=== PATIENT | female | born 1985 | race African-American/Black ===

== ENCOUNTER 2016-03-10 23:26 | Emergency (ER) | payer OTHER ==
[~2016-03-10] VITALS: Ht 167.6 cm; Wt 56.2 kg
[~2016-03-10 23:26] MED LIST: BACTRIM,SEPT1 TABLET PO; DOXYCYCLINE HY100 MG PO; FIORICET,ESG1 TABLET PO; KEFLEX500 MG PO; MOBIC7.5 MG PO; MODAFINIL100 MG PO; MOTRIN600 MG PO; Motrin PO; NOHOMEMEDS; PEN-VEE K,VEET500 MG PO; PERCOCET 5/31 TABLET PO; PREFERA-OB P1 TABLET PO; TRAMADOL HCL50 MG PO; VALIUM5 MG PO
[2016-03-11 00:58] LABS: HEMATOCRIT 39.1 % (36.0-46.0); MCH 26.6 PG (29.0-34.0); MCHC 33.5 G/DL (30.0-36.0); MCV 79.5 FL (83-99); MEAN PLAT.VOLUME 8.9 uM^3 (9.5-12.4); PLATELET COUNT 247 K/uL (156-360); RBC DIS.WIDTH-SD 36.7 % (39-53); RED BLOOD COUNT 4.92 M/uL (3.80-5.20); WHITE BLOOD COUNT 5.5 K/uL (4.1-10.2)
[2016-03-11 01:06] LABS: CHLORIDE 105 mEq/L (99-109); POTASSIUM 3.9 mEq/L (3.7-5.4); SODIUM 138 mEq/L (136-147)
[2016-03-11 01:08] LABS: GLUCOSE 89 mg/dL (70-99)
[2016-03-11 01:10] LABS: ANION GAP 10 MEQ/L (2-14)
[2016-03-11 01:12] LABS: GFR ESTIMATE (CALCULATED) > 59 mL/min/
[2016-03-11 01:13] LABS: UREA NITROGEN (BUN) 9 mg/dL (9-23)
[2016-03-11 01:15] LABS: D-DIMER ELISA 0.19 mg/L FEU (< 0.57)
[2016-03-11 01:23] LABS: QUANTITATIVE HCG < 4.0 MIU/ML
[2016-03-11 01:42] LABS: TROP-I INTERPRETATION NEGATIVE; TROPONIN-I < 0.01 ng/mL (0.0-0.30)
[2016-03-11] MEDS ORDERED: SKELAXIN800 MG PO (02:09)
[2016-03-11 03:15] VITALS: BP 91/60
== END 2016-03-11 03:15 | disposition home or self-care (01) ==
LOC: EME 23:26
PROVIDERS: Emergency Medicine
DX: R07.89 Other chest pain (principal); M54.6 Pain in thoracic spine
CPT/HCPCS: 71020; 80048; 84484; 84702; 85027; 85379; 93005; 99281; 99284

== ENCOUNTER 2016-04-04 08:13 | Emergency (ER) | payer OTHER ==
[~2016-04-04] VITALS: Ht 167.6 cm; Wt 56.5 kg
[~2016-04-04 08:13] MED LIST changes: +SKELAXIN800 MG PO
[2016-04-04 09:44] LABS: CHLORIDE 107 mEq/L (99-109); POTASSIUM 3.3 mEq/L (3.7-5.4); SODIUM 139 mEq/L (136-147)
[2016-04-04 09:46] LABS: GLUCOSE 91 mg/dL (70-99)
[2016-04-04 09:47] LABS: ANION GAP 10 MEQ/L (2-14)
[2016-04-04 09:48] LABS: TOTAL BILIRUBIN 0.4 mg/dL (0.0-1.0)
[2016-04-04 09:49] LABS: ALKALINE PHOSPHATASE 48 IU/L (3-129); GFR ESTIMATE (CALCULATED) > 59 mL/min/
[2016-04-04 09:51] LABS: UREA NITROGEN (BUN) 6 mg/dL (9-23)
[2016-04-04] MEDS ORDERED: FIORICET,ESG1 TABLET PO ×2 (10:24→10:29)
[2016-04-04 10:32] VITALS: BP 106/67
== END 2016-04-04 10:32 | disposition home or self-care (01) ==
LOC: EME 08:13
PROVIDERS: Physician Assistant
DX: R51 Headache (principal); R10.9 Unspecified abdominal pain; H57.8 Other specified disorders of eye and adnexa; H53.8 Other visual disturbances; L29.0 Pruritus ani; M54.2 Cervicalgia
CPT/HCPCS: 80053; 99281; 99284; J1885; J7030

== ENCOUNTER 2016-07-07 12:09 | Emergency (ER) | payer OTHER ==
[~2016-07-07] VITALS: Ht 167.6 cm; Wt 54.2 kg
[2016-07-07] MEDS ORDERED: ADDERALL20 MG PO (13:07)
[2016-07-07 13:32] LABS: EOSINOPHIL (%) 1.9 % (0-5); EOSINOPHIL COUNT 0.1 K/uL (0-0.3); HEMATOCRIT 39.7 % (36.0-46.0); IMMATURE GRANULOCYTE (%) 0.2 % (0.0-0.7); INSTRUMENT ABS NEUTROPHIL CT 2.1 K/uL; LYMPHOCYTE COUNT 1.7 K/uL (1.0-2.8); MCH 25.9 PG (29.0-34.0); MCV 80.9 FL (83-99); MEAN PLAT.VOLUME 8.6 uM^3 (9.5-12.4); MONOCYTE (%) 6.8 % (3-12); MONOCYTE COUNT 0.3 K/uL (0-0.8); NEUTROPHIL (%) 50.3 % (45-76); NEUTROPHIL COUNT 2.1 K/uL (1.8-6.4); PLATELET COUNT 265 K/uL (156-360); RBC DIS.WIDTH-CV 12.7 % (11.8-14.6); RBC DIS.WIDTH-SD 37.2 % (39-53); RED BLOOD COUNT 4.91 M/uL (3.80-5.20); WHITE BLOOD COUNT 4.1 K/uL (4.1-10.2)
[2016-07-07 13:49] LABS: CHLORIDE 107 mEq/L (99-109); POTASSIUM 4.2 mEq/L (3.7-5.4); SODIUM 140 mEq/L (136-147)
[2016-07-07 13:50] LABS: GLUCOSE 90 mg/dL (70-99)
[2016-07-07 13:52] LABS: ANION GAP 9 MEQ/L (2-14)
[2016-07-07 13:54] LABS: GFR ESTIMATE (CALCULATED) > 59 mL/min/
[2016-07-07 13:55] LABS: UREA NITROGEN (BUN) 10 mg/dL (9-23)
[2016-07-07 14:03] LABS: TROP-I INTERPRETATION NEGATIVE; TROPONIN-I < 0.01 ng/mL (0.0-0.30)
[2016-07-07 14:04] LABS: QUANTITATIVE HCG < 4.0 MIU/ML
[2016-07-07 14:48] VITALS: BP 103/74
== END 2016-07-07 14:49 | disposition home or self-care (01) ==
LOC: EME 12:09
PROVIDERS: Physician Assistant
DX: F41.9 Anxiety disorder, unspecified (principal)
CPT/HCPCS: 70450; 80048; 84484; 84702; 85025; 93005; 99281; 99284

== ENCOUNTER 2017-05-12 15:37 | Emergency (ER) | payer OTHER ==
[~2017-05-12] VITALS: Ht 167.6 cm; Wt 57.6 kg
[~2017-05-12 15:37] MED LIST changes: +ADDERALL20 MG PO
[2017-05-12] MEDS ORDERED: MOTRIN800 MG PO (16:24)
[2017-05-12 16:36] VITALS: BP 111/63
== END 2017-05-12 16:36 | disposition home or self-care (01) ==
LOC: EME 15:37
DX: M67.431 Ganglion, right wrist (principal)
CPT/HCPCS: 99281; 99284

== ENCOUNTER 2017-07-05 08:28 | Emergency (ER) | payer OTHER ==
[~2017-07-05] VITALS: Ht 167.6 cm; Wt 57.5 kg
[~2017-07-05 08:28] MED LIST changes: +MOTRIN800 MG PO
[2017-07-05 09:27] LABS: HEMATOCRIT 35.2 % (36.0-46.0); MCH 27.5 PG (29.0-34.0); MCHC 34.1 G/DL (30.0-36.0); MCV 80.7 FL (83-99); PLATELET COUNT 184 K/uL (156-360); RBC DIS.WIDTH-CV 12.4 % (11.8-14.6); RBC DIS.WIDTH-SD 36.3 % (39-53); RED BLOOD COUNT 4.36 M/uL (3.80-5.20); WHITE BLOOD COUNT 9.4 K/uL (4.1-10.2)
[2017-07-05 09:39] LABS: CHLORIDE 101 mEq/L (99-109); POTASSIUM 3.5 mEq/L (3.7-5.4); SODIUM 136 mEq/L (136-147)
[2017-07-05 09:40] LABS: GLUCOSE 84 mg/dL (70-99)
[2017-07-05 09:44] LABS: CREATININE 0.6 mg/dL (0.6-1.3); GFR ESTIMATE (CALCULATED) > 59 mL/min/
[2017-07-05 09:45] LABS: UREA NITROGEN (BUN) 6 mg/dL (9-23)
[2017-07-05 10:11] LABS: QUANTITATIVE HCG 101052.9 MIU/ML
[2017-07-05 10:47] VITALS: BP 92/30
== END 2017-07-05 10:49 | disposition home or self-care (01) ==
LOC: EME 08:28
PROVIDERS: Nurse Practitioner Family
DX: O03.4 Incomplete spontaneous abortion without complication (principal)
CPT/HCPCS: 80048; 84702; 85027; 86850; 86900; 86901; 99281; 99284

== ENCOUNTER 2017-07-26 11:58 | Emergency (ER) | payer OTHER ==
[~2017-07-26] VITALS: Ht 167.6 cm; Wt 56.2 kg
[2017-07-26 12:54] LABS: HEMATOCRIT 35.2 % (36.0-46.0); MCH 27.2 PG (29.0-34.0); MCHC 34.1 G/DL (30.0-36.0); MCV 79.8 FL (83-99); PLATELET COUNT 266 K/uL (156-360); RBC DIS.WIDTH-CV 12.5 % (11.8-14.6); RBC DIS.WIDTH-SD 36.1 % (39-53); RED BLOOD COUNT 4.41 M/uL (3.80-5.20); WHITE BLOOD COUNT 4.5 K/uL (4.1-10.2)
[2017-07-26 13:05] LABS: CHLORIDE 103 mEq/L (99-109); POTASSIUM 3.8 mEq/L (3.7-5.4); SODIUM 138 mEq/L (136-147)
[2017-07-26 13:07] LABS: GLUCOSE 81 mg/dL (70-99)
[2017-07-26 13:10] LABS: CREATININE 0.8 mg/dL (0.6-1.3); GFR ESTIMATE (CALCULATED) > 59 mL/min/
[2017-07-26 13:11] LABS: UREA NITROGEN (BUN) 7 mg/dL (9-23)
[2017-07-26 13:21] LABS: TROP-I INTERPRETATION NEGATIVE; TROPONIN-I < 0.01 ng/mL (0.0-0.30)
[2017-07-26 15:04] LABS: QUANTITATIVE HCG 90.5 MIU/ML
[2017-07-26 16:16] LABS: TROP-I INTERPRETATION NEGATIVE; TROPONIN-I < 0.01 ng/mL (0.0-0.30)
[2017-07-26 17:13] VITALS: BP 99/63
== END 2017-07-26 17:15 | disposition left against medical advice (07) ==
LOC: EME 11:58
PROVIDERS: Physician Assistant
DX: R07.9 Chest pain, unspecified (principal); R06.00 Dyspnea, unspecified; R42 Dizziness and giddiness
CPT/HCPCS: 71046; 80048; 84484; 84702; 85027; 93005; 99281; 99283